=== PATIENT | male | born 1970 | race Two or more races ===

== ENCOUNTER 2017-01-15 07:38 | Emergency (ER) | payer OTHER ==
--- NOTE | ~2017-01-15 | CT4 ---
[facility] A Service of [facility] & [facility] RADIOLOGY TEXT RESULTS PATIENT: CARLOS PERALES LOCATION: SED : 66 UNIT #: [id number] AGE: [address]: Taco Horowitz MD SEX: M ORDER DR: [id number] [address] [address] [id number] MR#: [id number] #: [id number] NAME: CARLOS PERALES. : 1970 SEX: M STUDY DATE/TIME: 01/15/2017 8:03 UNIT: SED ROOM: STUDY DESCRIPTION: CT Abd and Pelv Wo Cont Attending Physician: Taco Horowitz M.D. Ordering Physician: Taco Horowitz M.D. Primary Care Physician: Primary Care Physician No MEDICAL IMAGING REPORT This report is preliminary unless electronic signature is present. EXAM CT abdomen and pelvis without IV contrast COMPARISON August 17, 2016 and November 21, 2009. INDICATION 46-year-old male with left-sided abdominal and back pain since this morning. This is associated with nausea and emesis since this morning. TECHNIQUE This CT exam was performed with one or more of the following radiation dose reduction techniques: automatic exposure control, adjustment of mA and/or kV according to patient size, and iterative reconstruction. FINDINGS Axial CT imaging of the abdomen and pelvis was performed without IV contrast. The lack of IV contrast limits evaluation of adenopathy, vasculature and viscera. Coronal and sagittal reformats were constructed. Tiny fat-containing umbilical hernia. Chronic degenerative endplate change at L5-S1 where there is a small posterior disc protrusion, unchanged from comparison. No acute fractures or suspicious osseous lesions. No acute findings in imaged lower chest. There is calcification of the left anterior descending coronary artery. Unenhanced liver, gallbladder, pancreas, spleen and adrenal glands are unremarkable. There are bilateral nonobstructive renal calculi. In the proximal left ureter just beyond the ureteropelvic junction in the left upper quadrant of the abdomen there is a 7.0 mm obstructive calculus. This is causing mild left hydronephrosis. There is associated left perinephric stranding and trace perinephric fluid. Benign exophytic cyst versus angiomyolipoma in the inferior pole of the left kidney measuring up to 1.7 cm. Urinary bladder and prostate gland are unremarkable. Prior STS. [facility] A Service of [facility] & [facility] RADIOLOGY TEXT RESULTS PATIENT: CARLOS PERALES [place] [facility] [place] 66 UNIT #: [id number] AGE: [address]: Taco Horowitz MD SEX: M ORDER DR: appendectomy. No evidence of bowel obstruction. No pneumoperitoneum. No layering free fluid. Normal caliber of the abdominal aorta. No appreciable adenopathy. IMPRESSION 1. There is mild left hydronephrosis due to an obstructive calculus in the proximal left ureter measuring up to 7.0 mm. This is just beyond the ureteropelvic junction in the left upper quadrant of the abdomen. 2. Coronary artery calcification. 3. Bilateral nonobstructive renal calculi. 4. 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 5. Prior appendectomy. 6. Benign cyst versus angiomyolipoma of the left kidney. Dictated by... Wade Schwartz M.D. THIS IS AN ELECTRONICALLY VERIFIED REPORT Wade Schwartz M.D. at 01/17/2017 9:59 PM Loco TD: 01/15/2017 13:17 JOB #: [id number] MEDICAL IMAGING REPORT Page 1 of 1
[~2017-01-15 07:38] MED LIST: HYDROCODONE/APA1 T16 PO
[2017-01-15 08:24] LABS: URINE SOURCE CLEAN CATCH
[2017-01-15 08:25] LABS: BASOPHIL% 0.1 % (0-2.5); EOSINOPHIL% 0.4 % (0.0-7.0); HEMATOCRIT 42.2 % (38.0-50.0); HEMOGLOBIN 14.9 gm/dL (13.0-16.0); LYMPHOCYTE# 0.8 X10e3 (1.0-3.5); LYMPHOCYTE% 7.6 % (17.0-45.0); MEAN CELL VOLUME 88.1 FL (83-96); MEAN CORPUSCULAR HEMOGLOBIN 31.2 PG (28-34); MEAN CORPUSCULAR HGB CONC 35.4 g/dL (30-36); MEAN PLATELET VOLUME 10.9 FL (6.5-11.5); MONOCYTE# 0.5 X10e3 (0-1.0); MONOCYTE% 4.7 % (3.0-12.0); NEUTROPHIL# 9.5 X10e3 (1.5-7.1); NEUTROPHIL% 87.2 % (40-75); PLATELET COUNT 145 X10e3 (140-420); RED BLOOD COUNT 4.79 X10e (3.90-5.60); RED CELL DISTRIBUTION WIDTH 12.8 % (11.0-15.5); WHITE BLOOD COUNT 10.9 X10e3 (4.0-10.5)
[2017-01-15 08:26] LABS: MICRO INDICATED? YES; URINE APPEARANCE CLEAR; URINE BILIRUBIN NEG (NEG); URINE BLOOD TRACE-INTACT (NEG); URINE COLOR YELLOW; URINE GLUCOSE NEG (NORM); URINE KETONE TRACE (NEG); URINE LEUKOCYTE ESTERASE NEG (NEG); URINE NITRATE NEG (NEG); URINE PROTEIN NEG (NEG); URINE SPECIFIC GRAVITY 1.015 (1.003-1.035)
[2017-01-15 08:27] LABS: DIFF IND NO
[2017-01-15 08:38] LABS: URINE WBC 0-2 /[HPF] (0-5)
[2017-01-15 08:39] LABS: URINE BACTERIA NEG (NEG); URINE SQUAMOUS EPITHELIAL CELL OCCAS /[HPF]
[2017-01-15 08:49] LABS: BUN/CREATININE RATIO 15.45; CALCIUM SERUM 8.7 mg/dL (8.4-10.2); CREATININE SERUM 1.1 mg/dL (0.6-1.4); POTASSIUM 3.7 mmol/L (3.5-5.1)
== END 2017-01-15 09:35 | disposition home or self-care (01) ==
LOC: SED 07:38
PROVIDERS: Emergency Medicine
DX: N13.2 Hydronephrosis with renal and ureteral calculous obstruction (principal)
CPT/HCPCS: 36415; 74176; 80048; 81003; 85025; 96361; 96374; 96375; 99284; J2270; J2405